=== PATIENT | male | born 1980 | race Caucasian/White ===

== ENCOUNTER 2017-07-06 08:04 | Emergency (ER) | payer MEDICARE, MEDICAID ==
[2017-07-06 08:24] VITALS: BP 121/72; TEMP 97.5; O2SAT 94
--- NOTE | 2017-07-06 08:31 | ED.PDOC ---
History of Present Illness - General Chief Complaint: General Stated Complaint: Skin irritation, Back pain, Dry heels Time Seen by Provider: 07/06/17 08:28 Source: patient - History of Present Illness Initial Comments: PT REPORTS TO THE ED WITH COMPLAINT OF PAINFUL BUMPS TO THE BACK OF NECK X 1 WEEK. PT REPORTS BUMPS APPEARED AFTER HE CUT HIS HAIR WITH A RAZOR AT HOME. Timing/Duration: 1 week Severity: mild Improving Factors: nothing Worsening Factors: nothing Associated Symptoms: denies symptoms Allergies/Adverse Reactions: Allergies NO KNOWN ALLERGY Allergy (Verified 07/06/17 08:14) Home Medications: Ambulatory Orders Ibuprofen 800 mg PO Q8HR PRN #30 tab 07/06/17 Sulfamethoxazole-Trimethoprim [Bactrim Ds 800-160 mg] 2 tab PO BID #40 tab 07/06 Review of Systems - Review of Systems Constitutional: Denies: chills, fever EENTM: Denies: blurred vision, double vision Respiratory: Denies: cough, short of breath Cardiology: Denies: chest pain, palpitations Past Medical History (General) - Patient Medical History Hx Seizures: No Hx Stroke: No Hx Dementia: No Hx Asthma: No Hx of COPD: No Hx Cardiac Disorders: No Hx Congestive Heart Failure: No Hx Pacemaker: No Hx Hypertension: No Hx Thyroid Disease: No Hx Diabetes: No Hx Gastroesophageal Reflux: No Hx Renal Disease: No Hx of HIV: No Hx MRSA: No Surgical History: other - Vaccination History Hx Tetanus, Diphtheria Vaccination: No Hx Influenza Vaccination: No Hx Pneumococcal Vaccination: No - Social History Hx Tobacco Use: No Hx Alcohol Use: No Hx Substance Use: No Hx Depression: No Family Medical History - Family History Mother Family History: No Known Living Status: Still Living Physical Exam - Physical Exam General Appearance: Alert, Comfortable, No apparent distress Ears, Nose, Throat: hearing grossly normal Neck: full range of motion, supple, other - TENDER PAPULAR LESIONS ( APPROXIMATELY 5) LOCATED ON POSTERIOR NECK AND SCALP NEAR THE HAIRLINE, NO PURULENT DRAINAGE, NO FLUCTUANCE Respiratory: no respiratory distress Back Exam: normal inspection Neurologic: no motor/sensory deficits, alert, normal mood/affect, oriented x 3 Skin Exam: normal color, warm/dry Departure - Departure Clinical Impression: Folliculitis Time of Disposition: 08:32 Disposition: Discharge to Home or Self Care Condition: Good Departure Forms: ED Discharge - Pt. Copy, Patient Portal Self Enrollment Instructions: DI for Folliculitis Referrals: Alyson Sanchez, CLIENT REPORTING ASSOCIATE [Primary Care Provider] - 1-2 Weeks Prescriptions: Ibuprofen 800 mg PO Q8HR PRN #30 tab PRN Reason: Pain Sulfamethoxazole-Trimethoprim [Bactrim Ds 800-160 mg] 2 tab PO BID #40 tab Home Medications: Ambulatory Orders Ibuprofen 800 mg PO Q8HR PRN #30 tab 07/06/17 Sulfamethoxazole-Trimethoprim [Bactrim Ds 800-160 mg] 2 tab PO BID #40 tab 07/06
== END 2017-07-06 08:50 | disposition home or self-care (01) ==
LOC: ER 08:04
DX: L73.9 Follicular disorder, unspecified (principal)